=== PATIENT | male | born 1930 | race Caucasian/White ===

== ENCOUNTER 2018-01-11 23:37 | Emergency (ER) | payer MEDICARE, OTHER ==
[~2018-01-11] VITALS: Ht 162.6 cm; Wt 68.0 kg
[2018-01-12] MEDS ORDERED: TAMS0.4C34 PO (00:13)
[2018-01-12] MEDS ORDERED: METO-357 PO (00:13)
[2018-01-12] MEDS ORDERED: FINA5TAB11 PO (00:13)
[2018-01-12] MEDS ORDERED: LEVO25TA9 PO (00:13)
[2018-01-12] MEDS ORDERED: FLUT1DIS28 IH (00:13)
[2018-01-12] MEDS ORDERED: SIMV40TA5 PO (00:13)
[2018-01-12 00:22] LABS: BASOPHILS % (AUTO) 0.4 % (0.0-2.0); EOSINOPHILS # (AUTO) 0.1 K/uL (0.0-0.7); EOSINOPHILS % (AUTO) 1.5 % (0.0-7.0); HEMATOCRIT 41.5 % (36.7-47.1); HEMOGLOBIN 13.8 g/dL (12.5-16.3); LYMPHOCYTES # (AUTO) 1.3 K/uL (20.0-40.0); LYMPHOCYTES % (AUTO) 21.2 % (20.5-51.5); MEAN CORPUSCULAR HEMOGLOBIN 27.8 uug (23.8-33.4); MEAN CORPUSCULAR HGB CONC 33 g/dL (32.5-36.3); MONOCYTES # (AUTO) 0.5 K/uL (2.0-10.0); MONOCYTES % (AUTO) 7.9 % (0.0-11.0); NEUTROPHILS # (AUTO) 4.3 K/uL (1.8-8.9); PLATELET COUNT (AUTO) 139 K/uL (152-348); RED BLOOD CELL COUNT(AUTO) 4.95 MIL/uL (4.06-5.63); WHITE BLOOD COUNT (AUTO) 6.2 K/uL (3.6-10.2)
--- NOTE | 2018-01-12 00:22 | NUR ---
PT IN BED RESTING QUIETLY. VSS. BREATH SOUNDS EVEN AND UNLABORED. NO SIGNS/SYMPTOMS OF DISTRESS WITNESSED BY NURSE AT THIS TIME.
[2018-01-12 00:36] LABS: ALANINE AMINOTRANSFERASE 28 U/L (16-63); ALKALINE PHOSPHATASE 61 U/L (50-136); ASPARTATE AMINOTRANSFERASE 19 U/L (15-37); BILIRUBIN,DIRECT 0.1 mg/dL (0.0-0.2); BILIRUBIN,TOTAL 0.4 mg/dL (0.2-1.0); CARBON DIOXIDE 28 mmol/L (21-32); CHLORIDE 104 mmol/L (98-107); GLUCOSE 139 mg/dL (74-106); POTASSIUM 3.7 mmol/L (3.5-5.1); TOTAL PROTEIN, SERUM 7.2 g/dL (6.4-8.2); UREA NITROGEN, BLOOD 21 mg/dL (7-18)
--- NOTE | 2018-01-12 01:10 | NUR ---
Patient discharged to home in stable conditon. Written and verbal after care instructions given. Patient verbalizes understanding of instructions. Patient was able to ambulate unassisted with steady gait. Patient left with all personal belongings.
[2018-01-12 01:14] VITALS: BP 143/81
== END 2018-01-12 01:10 | disposition home or self-care (01) ==
LOC: ER 23:38
DX: R07.89 Other chest pain (principal); Z79.51 Long term (current) use of inhaled steroids; Z79.899 Other long term (current) drug therapy
CPT/HCPCS: 36415; 70030-TC; 71045; 85025; 85730; 93005; A4663

== ENCOUNTER 2021-10-30 22:21 | Emergency (ER) | payer MEDICARE, OTHER ==
[~2021-10-30] VITALS: Ht 170.2 cm; Wt 77.2 kg
[~2021-10-30 22:21] MED LIST: FINA5TAB11 PO; FLUT1DIS28 IH; LEVO25TA9 PO; METO-357 PO; SIMV-49 PO; TAMS0.4C34 PO
[2021-10-30] MEDS ORDERED: LORAZEPAM 0.5 MG TABLET PO ONE (22:30)
[2021-10-30 22:46] LABS: CREATININE 1.1 mg/dL (0.6-1.3); HEMATOCRIT 37.5 % (36.7-47.1); MEAN CORPUSCULAR HEMOGLOBIN 28.5 uug (23.8-33.4); MEAN CORPUSCULAR VOLUME 84.3 fL (73.0-96.2); PLATELET COUNT (AUTO) 131 K/uL (152-348); POTASSIUM 4.1 mmol/L (3.5-5.1)
[2021-10-30] MEDS ORDERED: LORAZEPAM 0.5 MG TABLET ONE (22:48)
[2021-10-30] MEDS ORDERED: LORA-258 PO (23:02)
--- NOTE | 2021-10-30 23:22 | NUR ---
IV removed. Catheter intact and site benign. Pressure and 4x4 gauze applied to site. No bleeding noted.
--- NOTE | 2021-10-30 23:34 | NUR ---
Patient discharged to home in stable condition. Written and verbal after care instructions given. Patient verbalizes understanding of instructions. Stressed follow up or return to ER for worsening s/s. Patient ambulated fr the ER with steady gait. All belongings with patient.
[2021-10-30 23:36] VITALS: BP 152/67
== END 2021-10-30 23:34 | disposition home or self-care (01) ==
LOC: ER 22:24
DX: R45.4 Irritability and anger (principal); R00.0 Tachycardia, unspecified; R94.31 Abnormal electrocardiogram [ECG] [EKG]; H05.401 Unspecified enophthalmos, right eye
CPT/HCPCS: 36415; 70030-TC; 71045; 85025; 93005; A4663